=== PATIENT | female | born 1960 | race African-American/Black ===

== ENCOUNTER 2022-11-02 17:50 | Emergency (ER) | payer OTHER, SELFPAY ==
--- NOTE | ~2022-11-02 | XR_ITS ---
EXAMINATION: XR chest 2V DATE: 11/02/2022 18:55 INDICATION: Cough and congestion. TECHNIQUE: Frontal and lateral views of the chest were obtained. COMPARISON: None. FINDINGS: There is a diffuse interstitial pattern, consistent with mild pulmonary edema. No pleural e ffusion or pneumothorax. Cardiomegaly is noted. Median sternotomy wires are noted. IMPRESSION: 1. Mild pulmonary edema. 2. Cardiomegaly. Reviewed, dictated and finalized at location E.
[2022-11-02 18:32] VITALS: BP 154/89; PULSE 80; RESP 16; TEMP 36.6; O2SAT 100
[2022-11-02 19:25] LABS: Influenza A QL RT-PCR Negative (Negative); Influenza B QL RT-PCR Negative (Negative); SARS-CoV-2 RNA PCR Negative (Negative)
--- NOTE | 2022-11-02 20:52 | PC.NURSE ---
Pt ambulatory to intake desk, agitated, states This wait is ridiculous, Im leaving. No waiting anymore. I can go home and sit. Pt ambulated out in NAD. Steady gait.
== END 2022-11-03 00:59 | disposition left against medical advice (07) ==
LOC: ANHED 21:04
PROVIDERS: Emergency Provider Emergency Medicine; PCP Family Medicine
DX: R05.9 Cough, unspecified (principal); Z20.822 Contact with and (suspected) exposure to COVID-19
CPT/HCPCS: 71046; 87636; 99199

== ENCOUNTER 2022-12-12 13:19 | Inpatient (IN) | payer OTHER, SELFPAY ==
[2022-12-12] VITALS (15 sets, daily range): BP systolic 121–147; BP diastolic 80–100; PULSE 67–79; RESP 12–20; TEMP 36.2–37.1; O2SAT 95–100; BMI 33.4
--- NOTE | ~2022-12-12 | US_ITS ---
EXAMINATION: US abdomen limited DATE: 12/13/2022 12:04 INDICATION: Epigastric abdominal pain. TECHNIQUE: Multiple grayscale and Doppler ultrasound images of the abdomen were obtained. COMPARISON: CT 12/13/2022 FINDINGS: The visualized portions of the head of the body of the pancreas are normal. The liver is no rmal without focal lesion. No liver surface nodularity. There is normal flow in main portal vein. The gallbladder is normal in size. No gallstones or gallbladder wall thickening. There is no sonographic Lovelace sign. The common duct is normal and measures 2 mm. IMPRESSION: 1. Normal right upper quadrant ultrasound. Reviewed, dictated and finalized at location A.
--- NOTE | ~2022-12-12 | CT_ITS ---
EXAMINATION: CTA chest PE protocol DATE: 12/13/2022 09:29 INDICATION: Chest pain. TECHNIQUE: Computed tomography angiography (CTA) of the chest was performed with 100 mL Omnipaque-350 intravenous contrast timed to evaluate the pulmonary arteries. Coronal maximum intensity projection 3D-reconstructions were created by the technologist. Automated exposure control and iterative reconst ruction technique were employed. The dose-length product was 676.76 mGy-cm. COMPARISON: Chest 2 views 11/02/2022 FINDINGS: The lungs demonstrate mild atelectasis. No pleural effusion. Cardiomegaly is noted. No jey cardial effusion. The central pulmonary arteries are enlarged, consistent with pulmonary arterial hyp ertension. There is no pulmonary embolus. There is mild aortic atherosclerosis. There is a 10 mm mass of fat in left kidney, consistent with an angiomyolipoma versus focal atrophy. Hyperdensity in the g allbladder may be contrast. Median sternotomy wires are noted. There is mild thoracic spondylosis. IMPRESSION: 1. No pulmonary embolus. Reviewed, dictated and finalized at location A. IMPRESSION: 1. No pulmonary embolus.
--- NOTE | 2022-12-12 13:25 | ED.CHESTPAIN ---
HPI - Chest Pain General Chief Complaint: Chest Pain Stated Complaint: cp Time Seen by Provider: 12/12/22 13:25 Source: patient and EMS Mode of arrival: EMS Limitations: clinical condition History of Present Illness HPI narrative: Patient came to the ED by ambulance with chest pain that started 1-1/2 hours prior to arrival while laying down playing with her grandkids. Patient have no teeth, difficult to understand, unable to answer question appropriately, in pain. EKG on arrival showed ST elevation in aVF and lead III. STEMI called. Dr. Cates came to the emergency room to evaluate the patient Review of Systems Review of Systems: ROS unobtainable: Yes unobtainable due to medical condition Exam Narrative: General appearance: Well-developed, well-nourished, in pain Skin: Normal color Head: Normocephalic, nontraumatic Eyes: Clear conjunctiva ENT: Oropharynx normal, ears normal, nose normal Neck: Supple, nontender Chest and respiratory: Airway patent, no respiratory distress, no accessory muscle use Heart: Regular rate/rhythm Abdomen: Soft, nontender, no organomegaly, quiet bowel sounds Vascular: Normal peripheral pulses, normal capillary refill. MDM - Chest Pain ECG Data EKG #1: Attestation: I personally reviewed and interpreted this ECG as follows: ECG completion date: 12/12/22 ECG completion time: 13:39 Interpretation: EKG is normal sinus rhythm at 65 bpm, ST elevation lead III and aVF, T wave abnormality, abnormal EKG no old EKG available for comparison Critical Care Time Critical Care Time Critical Care Time: Yes Total Critical Care Time: 15 Discharge Plan Discharge Clinical Impression: ST elevation (STEMI) myocardial infarction Condition: Guarded Prognosis Follow-up/Referrals: Davina,Ignacio Crowley MD [Primary Care Provider] -
--- NOTE | 2022-12-12 13:34 | PC.NURSE ---
Dr. Cates to bedside for consult.
--- NOTE | 2022-12-12 13:34 | PC.NURSE ---
REPEAT EKG OBTAINED FOR DR ROBLERO
--- NOTE | 2022-12-12 13:36 | ECG_ITS ---
Measurements Intervals [place] Rate: 76 P: 68 LA: 183 QRS: 84 QRSD: 90 T: 67 QT: 402 QTc: 452 Interpretive Statements SINUS RHYTHM ST DEVIATION AND MARKED T-WAVE ABNORMALITY, CONSIDER ANTERIOR ISCHEMIA [-0.5+ mV T- WAVE IN V3/V4] NO PREVIOUS ECG AVAILABLE FOR COMPARISON Electronically Signed On 12-13-2022 11:29:24 CDT by Jasmin Cates M.D.
--- NOTE | 2022-12-12 13:36 | PC.NURSE ---
4000 units of heparin given IV push
--- NOTE | 2022-12-12 13:39 | PC.NURSE ---
ASSISTANT NEWS DIRECTOR TEAM AT BEDSIDE
--- NOTE | 2022-12-12 13:40 | PC.NURSE ---
PT SHAVED AND PREPPED FOR CARDIAC CATH.
--- NOTE | 2022-12-12 13:40 | PC.NURSE ---
HEPARIN GTT 1000UNIT DRIP INITIATED
--- NOTE | 2022-12-12 13:41 | PC.NURSE ---
BRILINTA 180MG GIVEN
--- NOTE | 2022-12-12 13:43 | PC.NURSE ---
PT TAKEN TO CURING MACHINE OPERATOR BY TEAM
[2022-12-12 13:46] LABS: Basophils Absolute Auto 0.1 K/mm3 (0.0-0.1); Basophils Percent Auto 0.8 % (0.2-1.2); Eosinophils Absolute Auto 0.1 K/mm3 (0-0.3); Eosinophils Percent Auto 1.3 % (0-4.4); Hematocrit 39.4 % (37.0-47.0); Hemoglobin 12.3 g/dL (12.0-15.0); Immature Granulocyte Absolute 0.03 K/mm3 (0.00-0.031); Immature Granulocyte Percent A 0.4 % (0-0.5); Lymphocytes Absolute Auto 2.54 K/mm3 (0.9-3.2); Lymphocytes Percent Auto 32.9 % (18.3-44.2); Mean Corpuscular HGB Conc 31.2 g/dl (32-36); Mean Corpuscular Hemoglobin 27.8 pg (26-34); Mean Corpuscular Volume 89.1 fl (80-100); Mean Platelet Volume 10.9 fl (7.4-10.4); Monocytes Absolute Auto 0.6 K/mm3 (0.1-0.6); Monocytes Percent Auto 7.5 % (2.6-8.5); Neutrophils Absolute Auto 4.4 K/mm3 (1.3-6.7); Neutrophils Percent Auto 57.1 % (45.5-73.1); Platelet Count Result 231 k/mm3 (150-375); Red Blood Count 4.42 M/mm3 (4.2-5.4); Red Cell Distribution Width 15.4 % (11.5-14.5); White Blood Count 7.7 K/mm3 (4.5-10.0)
[2022-12-12 13:58] LABS: Prothrombin Time 13.8 Seconds (11.1-14.7)
[2022-12-12 13:59] LABS: Alanine Aminotransferase 17 U/L (6-35); Albumin Level 4.1 g/dL (3.5-5.1); Alkaline Phosphatase 87 U/L (38-126); Anion Gap 6 mmol/L (8-16); Aspartate Amino Transferase 20 U/L (14-36); Bilirubin,Total 0.3 mg/dL (0.2-1.3); Blood Urea Nitrogen 14 mg/dL (7-17); Calcium 8.7 mg/dL (8.4-10.2); Carbon Dioxide 30 mmol/L (22-30); Chloride 101 mmol/L (98-107); Cholesterol 126 mg/dL (0-200); Estimated CRCL calculation 66 ml/min; Estimated Glomerular Filt Rate > 60; Glucose 148 mg/dL (65-110); HDL Direct 46 mg/dL; Partial Thromboplastin Time 23.3 SECONDS (22.3-36.8); Potassium 4.1 mmol/L (3.4-5.0); Sodium 137 mmol/L (137-145); Triglycerides 76 mg/dL (<150)
[2022-12-12 14:06] LABS: LDL Cholesterol Direct 62 mg/dL
[2022-12-12 14:09] LABS: Troponin I < 0.012 ng/mL (0.000-0.034)
--- NOTE | 2022-12-12 14:27 | PM.CNCAR ---
Assessment and Plan Assessment and plan (1) Chest pain: Code(s): R07.9 - Chest pain, unspecified Status: Acute (2) ST elevation (STEMI) myocardial infarction: Qualifiers: Involved coronary artery: unspecified coronary artery Qualified Code(s): I21.3 - ST elevation (STEMI) myocardial infarction of unspecified site Code(s): I21.3 - ST elevation (STEMI) myocardial infarction of unspecified site Status: Suspected (3) History of open heart surgery: Code(s): Z98.890 - Other specified postprocedural states Status: Acute Plan We are consulted for possible STEMI. This is a 62 year old female who presented with acute chest pain that began about an hour and half prior to presenting to [facility]. Patient states it feels like someone is sitting on her chest. EKG in the ER shows sinus rhythm, incomplete right bundle branch block with T-wave inversions in the anterior leads. Lead III with approximately 1mm concave ST elevation and lead AVF with <1mm concave ST elevation. There is no prior EKG available for comparison. Given her concerning chest pain, decision made to take patient urgently to the laborer/key man. Cardiac catheterization shows no obstructive disease in the major epicardial coronary arteries, there is small branch vessel disease of a small caliber branch coming off of an OM vessel. Angiographically no STEMI. LVEDP is 5. Recommend further workup of her chest pain. Recommend CT PE to rule out PE. Will need to obtain records from [place] regarding her cardiac history. History of Present Illness History of Present Illness Consult date/time: 12/12/22 14:27 Requesting physician: Asif Medina MD Consult reason: chest pain Reason For Visit: STEMI Narrative: We are consulted for possible STEMI. This is a 62 year old female who presented with acute chest pain that began about an hour and half prior to presenting to [facility]. Patient states it feels like someone is sitting on her chest. EKG in the ER shows sinus rhythm, incomplete right bundle branch block with T-wave inversions in the anterior leads. Lead III with approximately 1mm concave ST elevation and lead AVF with <1mm concave ST elevation. There is no prior EKG available for comparison. Patient tells me that she underwent open heart surgery about 30 years ago at [facility]. Patient states that her valve was getting closed and she was coughing up blood from it and they had to go in here and open up the valve. Patient cannot provide me any further details other than that. When I looked in our [facility] system, I do not see any prior documentation or records. There are no other records here at [facility]. Patient states she sees a sports official at [facility], but she cannot remember the name of her Physical Therapy Asst. She does currently smoke 1PPD. No recreational drug use. Review of Systems Review of Systems: All systems reviewed & are unremarkable except as noted in HPI and below (HPI) Meds Vital Signs Vital Signs - 24 hr 12/12/22 13:20 Temperature 36.9 C Pulse Rate 76 Respiratory Rate 20 Blood Pressure 134/94 H Pulse Oximetry 97 Oxygen Delivery Room Air Exam Const: Other: In distress from chest pain HENMT: Mouth: Yes moist mucous membranes Eyes: General: appearance normal, both eyes and all related structures Sclera: sclerae normal Neck: Neck: supple Resp: Effort & Inspection: normal respiratory effort Auscultation: clear to auscultation bilaterally Cardio: Rate: regular rate Rhythm: regular rhythm Heart sounds: no murmurs Skin: General skin exam: normal color Neuro: Speech: normal speech Psych: Mental Status: mental status grossly normal Affect: normal affect Results Labs and Meds 12/12/22 13:39 12/12/22 13:38 Lab results: Cardiac Enzymes 12/12/22 Range/Units 13:38 AST 20 (14-36) U/L Troponin I < 0.012 (0.000-0.034) ng/mL Coagulation 12/12/22 Rang
--- NOTE | 2022-12-12 14:41 | WPDMODSED ---
Moderate Sedation Note-Pt Data Patient Data Diagnosis: ACS Present Complaint: Chest pain Procedure to be performed/Plan: Coronary angiography, left heart cath, +/- PCI Current Medications: Active Medications Sodium Chloride (Normal Saline Iv) 1,000 mls @ 125 mls/hr IV CONT .Q8H ONE Stop: 12/12/22 22:22 Perflutren Lipid Microsphere (Perflutren Lipid Microspheres 1.5 Ml Vial Diluted To 10 Ml Total Volume) 0 ml IV PUSH ONCE PRN; Protocol PRN Reason: adequate visualization Stop: 12/14/22 14:25 Sedation/Anesthesia: No previous sedation/anesthesia problems (including family history). Mod Sed Physical Exam Physical Exam Pre Procedural Exam: Normal: Lungs, Heart Rate, Heart Rhythm, Neuro Exam, Abdomen, Extremities and Skin and Variation: Appearance (In mild distress) Hours since solid foods: 0 Hours since liquid intake: 0 Mallampati Classification: class III Internal Medicine - PN: Obj Da Vital Signs Vital Signs: Vital Signs - 24 hr 12/12/22 13:20 Temperature 36.9 C Pulse Rate 76 Respiratory Rate 20 Blood Pressure 134/94 H Pulse Oximetry 97 Oxygen Delivery Room Air Meds/Results Medications: Active Medications Generic Name Dose Route Start Last Admin Trade Name Freq PRN Reason Stop Dose Admin Sodium Chloride 1,000 mls @ 125 mls/hr 12/12/22 14:23 Normal Saline Iv IV CONT 12/12/22 22:22 .Q8H ONE Perflutren Lipid Microsphere 0 ml 12/12/22 14:25 Perflutren Lipid Microspheres 1.5 Ml Vial Diluted To 10 Ml Total Volume IV PUSH 12/14/22 14:25 ONCE PRN adequate visualization Protocol Labs 12/12/22 13:39 12/12/22 13:38 Labs: Laboratory Results - last 24 hr 12/12/22 12/12/22 13:38 13:39 WBC 7.7 RBC 4.42 Hgb 12.3 Hct 39.4 MCV 89.1 MCH 27.8 MCHC 31.2 L RDW 15.4 H Plt Count 231 MPV 10.9 H Immature Gran % (Auto) 0.4 Neut % (Auto) 57.1 Lymph % (Auto) 32.9 [place] % (Auto) 7.5 Eos % (Auto) 1.3 Baso % (Auto) 0.8 Lymph # (Auto) 2.54 [place] # (Auto) 0.6 Eos # (Auto) 0.1 Baso # (Auto) 0.1 Abs Immat Gran (auto) 0.03 Absolute Neuts (auto) 4.4 Absolute Nucleated RBC 0.0 Nucleated RBC % 0.0 PT 13.8 INR 1.0 APTT 23.3 Sodium 137 Potassium 4.1 Chloride 101 Carbon Dioxide 30 Anion Gap 6 L BUN 14 Creatinine 0.90 Estim Creat Clear Calc 66 Estimated GFR > 60 Glucose 148 H Calcium 8.7 Total Bilirubin 0.3 AST 20 ALT 17 Alkaline Phosphatase 87 Troponin I < 0.012 Total Protein 8.0 Albumin 4.1 Triglycerides 76 Cholesterol 126 LDL Cholesterol Direct 62 HDL Direct 46 ASA Classification/Sedation ASA Classification/Sedation ASA Class: III Emergent: Yes Risks: Risks, benefits and alternatives explained and patient/family accepted plan for sedation. Patient re-evaluated immediately prior to sedation.
--- NOTE | 2022-12-12 14:42 | WPDCARDPROC ---
Cardiac Cath Procedure Note Date of procedure:: 12/12/22 Performing physician:: CATHETERIZATION LABORATORY REPORT Procedure Date: 12/12/2022 Coater Associate: Jasmin Cates M.D., [facility]? Referring Physician: Dr. Medina ([facility]) ? Anesthesia: Versed and Fentanyl were ordered and given in my presence at 14:00, procedure ended at 14:19. Supervision of nurse monitored moderate sedation with Versed and Fentanyl was provided for 19 minutes. Total of Versed 2mg and Fentanyl 75mcg were administered by the Sign Maker RN Nilda Celeste. Pre-op Diagnosis: Possible STEMI Post-op Diagnosis: 1. No obstructive coronary artery disease of the major epicardial coronary arteries. There is small branch vessel disease of an OM branch. 2. Normal left ventricular end-diastolic pressure of 5mmHg. 3. Left ventricular ejection fraction appears preserved on LV angiogram. Procedure(s): 1. Moderate sedation 2. Ultrasound-guided access of the right common femoral artery 3. Coronary angiography 4. Left heart cath 5. Angioseal closure of the right common femoral artery Access Site: Right common femoral artery Brief History and Clinical Indications: Patient is a 62 year old female who is referred for emergent cardiac cath for possible STEMI. All risks, benefits and alternatives to left heart catheterization with or without percutaneous coronary intervention was discussed at length with the patient. Risk of complications including but not limited to bleeding, infection, arrhythmia, stroke, worsening kidney function, blood loss, groin hematoma, limb loss, emergency coronary artery bypass grafting, and even were discussed with the patient and all questions were answered. The patient understood and wished to proceed. Time out called, patient name, date of , medical record number, allergies, procedure performed, identify Coater Associate, patient and staff member concurred with accurate data, procedure carried on. Findings: LEFT HEART CATHETERIZATION FINDINGS: 1. Left main: Large caliber vessel. The left main coronary artery is widely patent without any significant obstructive disease. 2. Left anterior descending: Large caliber vessel that tapers to small caliber distally. There is mild disease in the mid LAD, otherwise rest of the LAD and the diagonal branches have mild luminal irregularities without any significant obstructive angiographic disease. 3. Left circumflex: Large caliber vessel. The LCX has luminal irregularities. The OM vessel is a large caliber vessel that bifurcates into two branches. The first branch is a medium caliber vessel that is tortuous and has luminal irregularities. The second branch is a small caliber vessel with mild diffuse disease. There is a branch off of this branch that is diffusely diseased. 4. Right coronary artery: Large caliber vessel. The RCA has mild luminal irregularities without any significant obstructive angiographic disease. The RCA is the dominant vessel. 5. Left ventricle: A. End-diastolic pressure 5mmHg. B. LV gram: LVEF appears to be preserved. C. No significant gradient across aortic valve on catheter pullback. Description of Procedure: Informed consent signed and placed in the chart. Patient transferred to label maker room. Prepped and draped in usual sterile fashion. 2% lidocaine in right groin area. Micropuncture needle used to access right common femoral artery under ultrasound guidance. J wire advanced, micropuncture cannula placed. Right iliofemoral angiogram performed, access confirmed and micropuncture cannula exchanged for 6-FR sheath. 5F FL 4 diagnostic catheter engaged Left Main Coronary Artery. 6F FR 4 guide catheter engaged Right Coronary Artery. Multiple orthogonal angiogram obtained and reviewed 5F Pigtail diagnostic catheter crossed aortic valve to obtain LVEDP, LV angiogram deferred. Hemostasis was achieved by 6F Angioseal. ? Assessment: 1. No obstructive coronary artery
--- NOTE | 2022-12-12 15:56 | ADMGEN ---
This patient, Patricia Cloud, was admitted to Intensive Care Unit-6. Patient/family oriented to hospital policies and general routines including ID bracelet, bed and alarms, visiting hours, pain management, procedures, bathroom and other care routines, personal items, smoking policy, room service/diet, and visiting hours. Information on how to activate the Rapid Response Team has been discussed. Patient/Family are encouraged to report perceived risks to care and to ask questions if they do not understand what they are told or what they should do.
--- NOTE | 2022-12-12 16:21 | PM.IMHP ---
H&P: HPI History of Present Illness Date/Time: 12/12/22 16:21 Chief Complaint: Chest pain Narrative: This is a 62-year-old female patient who came to the emergency room via ambulance with complaints of chest pain that started an hour and half prior to arriving. The patient was laying down and playing with her grandkids when the chest pain occurred. When I question the patient she was complaining of left upper abdominal pain and lower back pain. ER had a difficult time understanding the patient she was not able to understand questions. When I assessed her in the emergency room she was grunting and holding her chest. EKG on arrival showed a ST elevation in AV F and lead 3 as STEMI was called. The patient was taken to the cardiac catheterization lab. Postop diagnosis. No obstructive coronary artery disease of the major epicardial coronary arteries. There is small branch vessel disease of an OM branch. 2. Normal left ventricular end-diastolic pressure of 5mmHg. 3. Left ventricular ejection fraction appears preserved on LV angiogram. The patient was found not to be a STEMI and there for her care was given over to the hospitalist group. The patient does have an old sternotomy scar and her daughter stated that she had a valve replacement. The daughter stated that the patient had a valve replaced at [facility]. However no records have been able to be found in the [facility] system. The patient is now in the ICU complaining of discomfort. Her daughters are answering the questions for her. Her troponin prior to the cardiac catheterization was negative post cardiac catheterization was 0.041. The patient's only past medical history is hyperlipidemia and hypertension. According to the daughters the patient has not been taking her medication for the last month. Chest x-ray was read as mild pulmonary edema and cardiomegaly. The patient was given fentanyl, Versed, morphine, heparin, Brilinta, GI cocktail, and Protonix. The patient has no prior history of DVTs or PEs. The patient is being admitted to inpatient status on the date of service of 12/12/2022. Review of Systems Review of Systems: All systems reviewed & are unremarkable except as noted in HPI and below Constitutional: Constitutional: Reports as per HPI and Reports no additional constitutional complaints Eyes: Eyes: Reports as per HPI and Reports no additional eye complaints ENT: Reports system reviewed and no additional complaints, except as documented and Reports Normal hearing present Cardiovascular: Cardiovascular: Reports no additional cardiovascular complaints Respiratory: Respiratory: Reports no additional respiratory complaints and Reports no additional respiratory complaints Gastrointestinal: Gastrointestinal: Reports as per HPI and Reports no additional gastrointestinal complaints Musculoskeletal: Musculoskeletal: Reports no additional musculoskeletal complaints Integumentary/Breasts: Skin/Breast: Reports system reviewed and no additional complaints, except as docu and Reports as per HPI Neurologic: Reports system reviewed and no additional complaints, except as documented, Reports as per HPI and Reports Normal hearing present Psychiatric: Psychiatric: Reports no additional psychiatric complaints and Reports as per HPI Endocrine: Endocrine: Reports no additional endocrine complaints Hematologic/Lymphatic: Hematologic/Lymphatic: Reports no additional hematologic/lymphatic complaints Allergic/Immunologic: Allergic/Immunologic: Reports no additional allergic/immunologic complaints PMFSH Past Medical History Medical History (Updated 12/12/22 @ 20:19 by Itzel Hughes NP) HTN (hypertension), malignant Hyperlipidemia Tobacco abuse Surgical History Surgical History (Updated 12/12/22 @ 20:08 by Itzel Hughes NP) Heart valve replaced Family History Family History (Updated 12/12/22 @ 20:10 by Itzel Hughes NP) Mother Hypertension Father Cancer Social Histo
[2022-12-12 17:09] LABS: D Dimer 0.37 ug/mL (<0.48)
[2022-12-12 17:27] LABS: Troponin I 0.041 ng/mL (0.000-0.034)
[2022-12-12] MEDS: BELLADONNA ALK/PHENOB ELIX 10 ML, MAG HYDROX/ALUMINUM HYD/SIMETH 30 ML, LIDOCAINE HCL 2... PO (17:30)
[2022-12-12] MEDS: FAMOTIDINE 20 MG/2 ML VIAL IV PUSH ×2 (17:32→20:46)
[2022-12-12] MEDS: MORPHINE SULFATE (*CRX) 2 MG/ML INJ IV PUSH (17:32)
[2022-12-12] MEDS: PANTOPRAZOLE SODIUM IV 40 MG VIAL IV PUSH (17:33)
[2022-12-12] MEDS: SODIUM CHLORIDE 0.9% IV 1,000 ML 125 ML IV CONT (17:33)
[2022-12-12] MEDS: ASPIRIN 81 MG CHEWABLE TABLET 324 MG PO (22:49)
[2022-12-13] VITALS (12 sets, daily range): BP systolic 118–149; BP diastolic 78–94; PULSE 62–81; RESP 16–29; TEMP 36.6–37.1; O2SAT 97–100
--- NOTE | 2022-12-13 | ECHO_ITS ---
Patient Info Name: Patricia Cloud Age: 62 years : 1960 Gender: Female Ht: 65 in Wt: 217 lbs BSA: 2.17 m2 HR: 70 bpm BP: 149 / 94 mmHg Heart Rhythm: Sinus Rhythm Technical Quality: Fair Exam Date: 12/13/2022 1:09 PM Exam Location: [facility] Patient Status: Inpatient Admit Date: 12/12/2022 Staff Ordering Physician: Jasmin Cates MD (silvia/alvarado) Circle Shear Operator: Joann Cole RDCS Attending Provider: Xena Stokes MD Referring Physician: Darryn SIEGEL; Exam Type: CA echo doppler color flow Study Info Indications R07.9 - Chest pain, unspecified Complete two-dimensional, color flow and Doppler transthoracic echocardiogram is performed. Summary 1. Complete two-dimensional, color flow and Doppler transthoracic echocardiogram is performed. 2. Normal left ventricular size and function with good contractility of all segments. Ejection fraction 65-70%. Grade 2 diastolic dysfunction is present. 3. Left atrial chamber dimension is mildly enlarged. 4. The mitral valve annulus is moderately calcified and the valve is moderately thickened, with restricted movement of the posterior leaflet and buckling of the anterior leaflet. There is mild mitral stenosis present with a mitral valve area of 1.7-2.0 cm2, and mean gradient of 7 mmHg. Consider rheumatic mitral valve disease. 5. No pulmonary hypertension, estimated pulmonary arterial systolic pressure is 34 mmHg. 6. Normal sinus rhythm. Left Ventricle Left ventricular chamber dimension is normal. Left ventricular systolic function is normal, estimated at 65-70%. There is no increased left ventricular wall thickness. Left ventricular septal wall motion is normal. The left ventricular diastolic function is grade II diastolic dysfunction. Right Ventricle Right ventricular chamber dimension is normal. Right ventricular systolic function is normal. Left Atria Left atrial chamber dimension is mildly enlarged. Right Atria Right atrial chamber dimension is normal. Aortic Valve The aortic valve is trileaflet. There is mild aortic valve sclerosis. There is no aortic valve stenosis. There is no aortic valve regurgitation. Pulmonic Valve The pulmonic valve is normal. There is no pulmonic valve stenosis. There is trace pulmonic regurgitation. Mitral Valve The mitral valve has thickened leaflets and restricted posterior leaflet motion. There is mild mitral valve stenosis. There is trace mitral valve regurgitation. There is mild mitral valve calcification. The mitral valve annulus is moderately calcified and the valve is moderately thickened, with restricted movement of the posterior leaflet and buckling of the anterior leaflet. There is mild mitral stenosis present with a mitral valve area of 1.7-2.0 cm2, and mean gradient of 7 mmHg. Consider rheumatic mitral valve disease. Tricuspid Valve The tricuspid valve leaflets are normal. There is no significant tricuspid valve stenosis. There is trace tricuspid valve regurgitation. No pulmonary hypertension, estimated pulmonary arterial systolic pressure is 34 mmHg. Pericardium/Pleural The pericardium appears normal. There is no pericardial effusion. Inferior Vena Cava Normal inferior vena cava with >50% collapse upon inspiration consistent with Empty right atrial pressure, 10 mmHg. Aorta The aortic root size at the sinus of Valsalva is normal. The prox ascending aorta size is normal. Left Ventricular Outflow Tract Name Value Nor
[2022-12-13] MEDS: HYDROcodone/acetaminophen (*CRX) 5-325 MG TABLET 1 TAB PO ×2 (04:38→20:20)
[2022-12-13 04:42] LABS: Basophils Absolute Auto 0.1 K/mm3 (0.0-0.1); Basophils Percent Auto 0.8 % (0.2-1.2); Eosinophils Absolute Auto 0.1 K/mm3 (0-0.3); Eosinophils Percent Auto 1.1 % (0-4.4); Hematocrit 40.4 % (37.0-47.0); Hemoglobin 12.4 g/dL (12.0-15.0); Immature Granulocyte Absolute 0.01 K/mm3 (0.00-0.031); Immature Granulocyte Percent A 0.1 % (0-0.5); Lymphocytes Absolute Auto 1.83 K/mm3 (0.9-3.2); Lymphocytes Percent Auto 24.9 % (18.3-44.2); Mean Corpuscular HGB Conc 30.7 g/dl (32-36); Mean Corpuscular Hemoglobin 27.9 pg (26-34); Mean Platelet Volume 10.9 fl (7.4-10.4); Monocytes Absolute Auto 0.6 K/mm3 (0.1-0.6); Neutrophils Absolute Auto 4.8 K/mm3 (1.3-6.7); Neutrophils Percent Auto 65.1 % (45.5-73.1); Platelet Count Result 206 k/mm3 (150-375); Red Blood Count 4.44 M/mm3 (4.2-5.4); Red Cell Distribution Width 15.4 % (11.5-14.5); White Blood Count 7.4 K/mm3 (4.5-10.0)
[2022-12-13 05:01] LABS: Alanine Aminotransferase 31 U/L (6-35); Albumin Level 3.6 g/dL (3.5-5.1); Alkaline Phosphatase 71 U/L (38-126); Anion Gap 5 mmol/L (8-16); Aspartate Amino Transferase 124 U/L (14-36); Bilirubin,Total 0.5 mg/dL (0.2-1.3); Blood Urea Nitrogen 12 mg/dL (7-17); Calcium 8.3 mg/dL (8.4-10.2); Carbon Dioxide 25 mmol/L (22-30); Chloride 107 mmol/L (98-107); Estimated CRCL calculation 92 ml/min; Estimated Glomerular Filt Rate > 60; Glucose 103 mg/dL (65-110); Lipase 32 U/L (23-300); Magnesium 2.3 mg/dL (1.6-2.3); Potassium 4.2 mmol/L (3.4-5.0); Sodium 137 mmol/L (137-145)
[2022-12-13 05:06] LABS: Lactic Acid Reflex 0.7 mmol/L (0.7-2.0)
[2022-12-13 05:51] LABS: Thyroid Stimulating Hormone Reflex 0.367 uIU/mL (0.465-4.68)
--- NOTE | 2022-12-13 07:00 | ECG_ITS ---
Measurements Intervals [place] Rate: 75 P: 58 WY: 168 QRS: 102 QRSD: 86 T: -35 QT: 385 QTc: 432 Interpretive Statements SINUS RHYTHM WITH OCCASIONAL SUPRAVENTRICULAR PREMATURE COMPLEXES INDETERMINATE AXIS POSSIBLE RIGHT VENTRICULAR CONDUCTION DELAY [RSR (QR) IN V1/V2] NONSPECIFIC T-WAVE ABNORMALITY COMPARED TO ECG 12/12/2022 13:34:57 NO SIGNIFICANT CHANGES Electronically Signed On 12-13-2022 14:10:13 CDT by Arpita Howard M.D.
[2022-12-13 07:08] LABS: Free T4 Free Thyroxine Reflex 1.02 ng/dL (0.78-2.19)
[2022-12-13 08:04] LABS: Total Triiodothyronine (T3) 0.92 NG/ML (0.97-1.69)
--- NOTE | 2022-12-13 08:43 | PM.PNCARD ---
Progress Note: A&P Assessment and Plan (1) NSTEMI (non-ST elevated myocardial infarction): Code(s): I21.4 - Non-ST elevation (NSTEMI) myocardial infarction Status: Acute Assessment and Plan: Cardiac catheterization 12/12 showed: No obstructive coronary artery disease of the major epicardial coronary arteries. There is small branch vessel disease of an OM branch. Normal left ventricular end-diastolic pressure of 5mmHg. Troponin levels: <0.012, 0.041, 7.280. NSTEMI possibly from the small branch vessel disease, however, it seems out of proportion to the degree of chest pain she was having and the degree of troponin elevation. Possibly from MINOCA (myocardial infarction with no obstructive coronary arteries), coronary spasm, etc. Echocardiogram is pending. Loaded with ASA and Brilinta 12/12. Recommend ASA 81mg once daily indefinitely, Brilinta 90mg BID, high intensity statin. Will also obtain CTA to rule out pulmonary embolism. (2) History of open heart surgery: Code(s): Z98.890 - Other specified postprocedural states Status: Acute Assessment and Plan: Patient tells me that she underwent open heart surgery about 30 years ago at [facility]. Patient states that her valve was getting closed and she was coughing up blood from it and they had to go in here and open up the valve. Patient cannot provide me any further details other than that. When I looked in our [employer] system, I do not see any prior documentation or records. There are no other records here at [facility]. Will try to request records from [facility] to see if we can get any information. (3) Tobacco abuse: Code(s): Z72.0 - Tobacco use Status: Acute Assessment and Plan: Encourage smoking cessation (4) Hyperlipidemia: Code(s): E78.5 - Hyperlipidemia, unspecified Status: Acute Assessment and Plan: LDL 62. Continue high-intensity statin. (5) Hypertension: Code(s): I10 - Essential (primary) hypertension Status: Acute Assessment and Plan: Stable. Subjective Date/time seen: 12/13/22 08:43 Interval history: Reason for visit: NSTEMI HPI: We are consulted for possible STEMI. This is a 62 year old female who presented with acute chest pain that began about an hour and half prior to presenting to [facility]. Patient states it feels like someone is sitting on her chest. EKG in the ER shows sinus rhythm, incomplete right bundle branch block with T-wave inversions in the anterior leads. Lead III with approximately 1mm concave ST elevation and lead AVF with <1mm concave ST elevation. There is no prior EKG available for comparison. Patient tells me that she underwent open heart surgery about 30 years ago at [facility]. Patient states that her valve was getting closed and she was coughing up blood from it and they had to go in here and open up the valve. Patient cannot provide me any further details other than that. When I looked in our [employer] system, I do not see any prior documentation or records. There are no other records here at [facility]. Patient states she sees a cloth folder hand at [facility], but she cannot remember the name of her Vacation Planner. She does currently smoke 1PPD. No recreational drug use. Date of service 12/13/2022: Cardiac catheterization showed no obstructive disease in the major epicardial coronary arteries, there is small branch vessel disease of a small caliber branch coming off of an OM vessel. Angiographically no STEMI. LVEDP is 5mmHg. Patient reports that she is feeling much better this morning. Has very light occasional chest pain, but currently without chest pain. Has lower abdominal pain for which an ultrasound is pending. Review of Systems Review of Systems: All systems reviewed & are unremarkable except as noted in HPI and below (HPI) Exam Const: General: comfortable and no acute distress HENMT: Mouth: Yes moist mucous membranes Eyes: General: appearance normal, both eyes and all
[2022-12-13] MEDS: ASPIRIN 81 MG CHEWABLE TABLET PO (09:49)
[2022-12-13] MEDS: ATORVASTATIN 40 MG TABLET PO (09:49)
[2022-12-13] MEDS: FAMOTIDINE 20 MG/2 ML VIAL IV PUSH ×2 (09:49→20:20)
[2022-12-13] MEDS: TICAGRELOR 90 MG TABLET PO ×2 (09:50→20:21)
[2022-12-13] MEDS: ENOXAPARIN 40 MG/0.4 ML SYRINGE SUB-Q (09:50)
--- NOTE | 2022-12-13 14:45 | PM.IMPN ---
Progress Note: A&P Assessment and Plan (1) Hypertension: Code(s): I10 - Essential (primary) hypertension Status: Acute (2) NSTEMI (non-ST elevated myocardial infarction): Code(s): I21.4 - Non-ST elevation (NSTEMI) myocardial infarction Status: Acute (3) Tobacco abuse: Code(s): Z72.0 - Tobacco use Status: Acute Assessment and Plan: Smoking cessation (4) Hyperlipidemia: Code(s): E78.5 - Hyperlipidemia, unspecified Status: Acute Assessment and Plan: Resume atorvastatin. (5) History of open heart surgery: Code(s): Z98.890 - Other specified postprocedural states Status: Acute (6) Chest pain: Code(s): R07.9 - Chest pain, unspecified Status: Acute Assessment and Plan: Chest x-ray mild pulmonary edema cardiomegaly. Cardiac catheterization procedure was performed today. No obstructive coronary artery disease of the major epicardial coronary arteries. There is small branch vessel disease of an OM branch. 2. Normal left ventricular end-diastolic pressure of 5mmHg. 3. Left ventricular ejection fraction appears preserved on LV angiogram. The patient was determined not to have a STEMI. Cardiology looked in [facility] and did not see any prior documentation her records. The patient could not remember the name of the filters assembler that she follows with. I spoke with Radiology and stated that she would not be able to get a CTA pulmonary today because she has already had dye with cardiac catheterization. Continue asa, lipitor and ticagrelor (7) HTN (hypertension), malignant: Code(s): I10 - Essential (primary) hypertension Status: Deleted Assessment and Plan: The patient needs to resume her home medications of losartan and hydrochlorothiazide. Subjective Date/time seen: 12/13/22 14:45 Interval history: 62-year-old female patient who came to the emergency room via ambulance with complaints of chest pain that started an hour and half prior to arriving.? The patient was laying down and playing with her grandkids when the chest pain occurred.? When I question the patient she was complaining of left upper abdominal pain and lower back pain.? ER had a difficult time understanding the patient she was not able to understand questions.? When I assessed her in the emergency room she was grunting and holding her chest.? EKG on arrival showed a ST elevation in AV F and lead 3 as STEMI was called.? The patient was taken to the cardiac catheterization lab.? Postop diagnosis. No obstructive coronary artery disease of the major epicardial coronary arteries. There is small branch vessel disease of an OM branch. 2. Normal left ventricular end-diastolic pressure of 5mmHg. 3. Left ventricular ejection fraction appears preserved on LV angiogram. Pt denies chest pain or SOB today pt to have echo and us abdomen today Review of Systems Review of Systems: Mild sob today otherwise doing well Objective Data Vital Signs Vital Signs: Vital Signs - 24 hr 12/12/22 15:00 12/12/22 15:15 12/12/22 15:30 Temperature Pulse Rate 77 78 67 Respiratory Rate 13 12 14 Blood Pressure 137/83 126/91 H 140/87 Pulse Oximetry 96 96 98 Oxygen Delivery Room Air Room Air Room Air 12/12/22 16:00 12/12/22 16:00 12/12/22 18:00 Temperature Pulse Rate 76 79 Respiratory Rate Blood Pressure Pulse Oximetry 99 Oxygen Delivery Room Air 12/12/22 16:00 12/12/22 16:30 12/12/22 17:30 Temperature 37.1 C 37.1 C 36.9 C Pulse Rate 77 74 68 Respiratory Rate 14 17 15 Blood Pressure 147/99 H 140/100 H 145/89 H Pulse Oximetry 100 100 100 Oxygen Delivery 12/12/22 20:00 12/12/22 19:30 12/12/22 20:00 Temperature 36.8 C Pulse Rate 78 77 Respiratory Rate 19 18 Blood Pressure 124/80 124/81 Pulse Oximetry 100 100 100 Oxygen Delivery Room Air 12/12/22 20:00 12/12/22 20:41 12/12/22 22:00 Temperature 36.8 C Pulse Rate 77 78 77 Respirato
[2022-12-14] VITALS: PULSE 52; O2SAT 97
[2022-12-14 00:45] VITALS: BP 115/63; PULSE 68; RESP 17; TEMP 36.8; O2SAT 97
[2022-12-14 02:00] VITALS: PULSE 64
[2022-12-14 04:00] VITALS: BP 121/90; PULSE 65; PULSE 67; RESP 19; TEMP 36.9; O2SAT 97; O2SAT 98
[2022-12-14 06:00] VITALS: PULSE 60
[2022-12-14 08:00] VITALS: BP 113/64; PULSE 66; RESP 115; TEMP 36.5; O2SAT 90
--- NOTE | 2022-12-14 08:36 | PM.IMPN ---
Progress Note: A&P Assessment and Plan (1) Hypertension: Code(s): I10 - Essential (primary) hypertension Status: Acute Assessment and Plan: Blood pressures reviewed 12/14 (2) NSTEMI (non-ST elevated myocardial infarction): Code(s): I21.4 - Non-ST elevation (NSTEMI) myocardial infarction Status: Acute Assessment and Plan: Cont aspirin, lipitor, brilinta (3) Tobacco abuse: Code(s): Z72.0 - Tobacco use Status: Acute Assessment and Plan: Smoking cessation (4) Hyperlipidemia: Code(s): E78.5 - Hyperlipidemia, unspecified Status: Acute Assessment and Plan: Resume atorvastatin (5) History of open heart surgery: Code(s): Z98.890 - Other specified postprocedural states Status: Acute (6) Chest pain: Code(s): R07.9 - Chest pain, unspecified Status: Acute Assessment and Plan: Chest x-ray mild pulmonary edema cardiomegaly. Cardiac catheterization procedure was performed 12/13 No obstructive coronary artery disease of the major epicardial coronary arteries. There is small branch vessel disease of an OM branch. Cardio determined no STEMI. Continue asa, lipitor and ticagrelor Consider CTA r/o PE when contrast out of system (7) HTN (hypertension), malignant: Code(s): I10 - Essential (primary) hypertension Status: Deleted Assessment and Plan: The patient needs to resume her home medications of losartan and hydrochlorothiazide. Plan DVT prophylaxis with lovenox GI prophylaxis with pepcid Code status full code Subjective Date/time seen: 12/14/22 08:36 Interval history: 62-year-old female patient who came to the emergency room via ambulance with complaints of chest pain that started an hour and half prior to arriving.? The patient was laying down and playing with her grandkids when the chest pain occurred.? When I question the patient she was complaining of left upper abdominal pain and lower back pain.? ER had a difficult time understanding the patient she was not able to understand questions.? When I assessed her in the emergency room she was grunting and holding her chest.? EKG on arrival showed a ST elevation in AV F and lead 3 as STEMI was called.? The patient was taken to the cardiac catheterization lab.? Postop diagnosis. No obstructive coronary artery disease of the major epicardial coronary arteries. There is small branch vessel disease of an OM branch. 2. Normal left ventricular end-diastolic pressure of 5mmHg. 3. Left ventricular ejection fraction appears preserved on LV angiogram. Pt denies chest pain or SOB today pt to have echo and us abdomen today Review of Systems Review of Systems: 12 point review of systems was assessed and was negative except as noted in the HPI Exam Narrative: General: No acute distress, alert and oriented per baseline HEENT: Atraumatic, normocephalic, mucous membranes moist CV: Regular rate and rhythm, S1, S2 Lungs: Clear to auscultation bilaterally, no rales or crackles noted, no wheezes, good air entry Abdomen: Soft, nontender, nondistended Extremities: Normal to inspection Skin: No rashes noted, no lesions or wounds seen Psych: Euthymic, normal affect Objective Data Vital Signs Vital Signs: Vital Signs - 24 hr 12/13/22 10:00 12/13/22 12:00 12/13/22 12:00 Temperature 98.4 F Pulse Rate 68 68 81 Respiratory Rate 29 H Blood Pressure 146/80 H Pulse Oximetry 100 Oxygen Delivery 12/13/22 12:00 12/13/22 14:00 12/13/22 16:00 Temperature Pulse Rate 81 68 75 Respiratory Rate 29 H Blood Pressure Pulse Oximetry 100 Oxygen Delivery Room Air 12/13/22 16:00 12/13/22 16:00 12/13/22 18:00 Temperature 98.7 F Pulse Rate 75 75 70 Respiratory Rate 16 16 Blood Pressure 123/78 Pulse Oximetry 100 100 Oxygen Delivery Room Air 12/13/22 20:00 12/13/22 20:00 12/13/22 22:00 Temperat
[2022-12-14] MEDS: ATORVASTATIN 40 MG TABLET PO (08:44)
[2022-12-14] MEDS: hydroCHLOROthiazide 12.5 MG CAPSULE PO (08:44)
[2022-12-14] MEDS: ASPIRIN 81 MG CHEWABLE TABLET PO (08:44)
[2022-12-14] MEDS: FAMOTIDINE 20 MG/2 ML VIAL IV PUSH (08:45)
[2022-12-14] MEDS: TICAGRELOR 90 MG TABLET PO (08:45)
[2022-12-14] MEDS: LOSARTAN POTASSIUM 50 MG TABLET PO (08:45)
[2022-12-14] MEDS: ENOXAPARIN 40 MG/0.4 ML SYRINGE SUB-Q (08:45)
--- NOTE | 2022-12-14 09:38 | PM.DS ---
DS: Admitting Diagnosis Discharge Date 12/14/22 Admitting Diagnosis chest pain DS: Discharge Diagnosis Discharge Diagnosis (1) Hypertension: Code(s): I10 - Essential (primary) hypertension Status: Acute Assessment and Plan: Blood pressures reviewed 12/14 (2) NSTEMI (non-ST elevated myocardial infarction): Code(s): I21.4 - Non-ST elevation (NSTEMI) myocardial infarction Status: Acute Assessment and Plan: Cont aspirin, lipitor, brilinta (3) Tobacco abuse: Code(s): Z72.0 - Tobacco use Status: Acute Assessment and Plan: Smoking cessation (4) Hyperlipidemia: Code(s): E78.5 - Hyperlipidemia, unspecified Status: Acute Assessment and Plan: Resume atorvastatin (5) History of open heart surgery: Code(s): Z98.890 - Other specified postprocedural states Status: Acute (6) Chest pain: Code(s): R07.9 - Chest pain, unspecified Status: Acute Assessment and Plan: Chest x-ray mild pulmonary edema cardiomegaly. Cardiac catheterization procedure was performed 12/13 No obstructive coronary artery disease of the major epicardial coronary arteries. There is small branch vessel disease of an OM branch. Cardio determined no STEMI. Continue asa, lipitor and ticagrelor Consider CTA r/o PE when contrast out of system (7) HTN (hypertension), malignant: Code(s): I10 - Essential (primary) hypertension Status: Deleted Assessment and Plan: The patient needs to resume her home medications of losartan and hydrochlorothiazide. Plan DVT prophylaxis with lovenox GI prophylaxis with pepcid Code status full code DS: Summary Hospital Course Hospital Course: 62-year-old female patient who came to the emergency room via ambulance with complaints of chest pain that started an hour and half prior to arriving. Cardiology was consulted and recommended cardiac catheterization. Cardiac catheterization shows no obstructive disease in the major epicardial coronary arteries, there is small branch vessel disease of a small caliber branch coming off of an OM vessel. Angiographically no STEMI. LVEDP is 5. NSTEMI possibly from the small branch vessel disease, however, it seems out of proportion to the degree of chest pain she was having and the degree of troponin elevation. Possibly from MINOCA (myocardial infarction with no obstructive coronary arteries), coronary spasm, etc. Echocardiogram is pending. Loaded with ASA and Brilinta 12/12. Recommend ASA 81mg once daily indefinitely, Brilinta 90mg BID, high intensity statin. Please see above and med rec for details. Patient was discharged in stable condition with all symptoms resolved and close outpatient follow-up by Cardiology in family practice. Time Spent with Patient Time attestation: Total time spent providing and/or coordinating discharge services: Exam Narrative: General: No acute distress, alert and oriented per baseline HEENT: Atraumatic, normocephalic, mucous membranes moist CV: Regular rate and rhythm, S1, S2 Lungs: Clear to auscultation bilaterally, no rales or crackles noted, no wheezes, good air entry Abdomen: Soft, nontender, nondistended Extremities: Normal to inspection Skin: No rashes noted, no lesions or wounds seen Psych: Euthymic, normal affect Discharge Plan Discharge Attending physician on discharge: Gertrude Busby Consulting providers: Jasmin Cates Discharging Clinician: Gertrude Busby Patient Disposition: Home, Self-Care Activity: as tolerated Diet: as tolerated Patient Instructions: Antibiotic Form, How to Stop Smoking (GEN) Stand Alone Forms: General Discharge Information Follow-up/Referrals: Yobany*,Ignacio Crowley MD [Primary Care Provider] - Jasmin Cates MD [Physician] - Discharge Medications: New aspirin [Children's Aspirin] 81 mg Tablet,Chewable 81 mg PO DAILY@0800 30 Days Q
--- NOTE | 2022-12-14 10:14 | PM.PNCARD ---
Progress Note: A&P Assessment and Plan (1) NSTEMI (non-ST elevated myocardial infarction): Code(s): I21.4 - Non-ST elevation (NSTEMI) myocardial infarction Status: Acute Assessment and Plan: Cardiac catheterization 12/12 showed: No obstructive coronary artery disease of the major epicardial coronary arteries. There is small branch vessel disease of an OM branch. Normal left ventricular end-diastolic pressure of 5mmHg. Troponin levels: <0.012, 0.041, 7.280. NSTEMI possibly from the small branch vessel disease, however, it seems out of proportion to the degree of chest pain she was having and the degree of troponin elevation. Possibly from MINOCA (myocardial infarction with no obstructive coronary arteries), coronary spasm, etc. Loaded with ASA and Brilinta 12/12. Recommend ASA 81mg once daily indefinitely, Brilinta 90mg BID, high intensity statin. CTA negative for PE. Echocardiogram 12/13 shows normal LV size and function with good contractility of all segments. LVEF is 65-70%. (2) History of open heart surgery: Code(s): Z98.890 - Other specified postprocedural states Status: Acute Assessment and Plan: Patient tells me that she underwent open heart surgery about 30 years ago at [facility]. Patient states that her valve was getting closed and she was coughing up blood from it and they had to go in here and open up the valve. Patient cannot provide me any further details other than that. When I looked in our [employer] system, I do not see any prior documentation or records. There are no other records here at [facility]. Will try to request records from [facility] to see if we can get any information. Echocardiogram 12/14 shows mild mitral stenosis. Recommend outpatient follow up with her primary Litigation Legal Assistant. (3) Tobacco abuse: Code(s): Z72.0 - Tobacco use Status: Acute Assessment and Plan: Encourage smoking cessation (4) Hyperlipidemia: Code(s): E78.5 - Hyperlipidemia, unspecified Status: Acute Assessment and Plan: LDL 62. Continue high-intensity statin. (5) Hypertension: Code(s): I10 - Essential (primary) hypertension Status: Acute Assessment and Plan: Stable. Plan Okay for discharge home today. Patient to follow up with her primary Litigation Legal Assistant. Recommendations/plan discussed with Hospitalist. Subjective Date/time seen: 12/14/22 10:14 Interval history: Reason for visit: NSTEMI HPI: We are consulted for possible STEMI. This is a 62 year old female who presented with acute chest pain that began about an hour and half prior to presenting to [facility]. Patient states it feels like someone is sitting on her chest. EKG in the ER shows sinus rhythm, incomplete right bundle branch block with T-wave inversions in the anterior leads. Lead III with approximately 1mm concave ST elevation and lead AVF with <1mm concave ST elevation. There is no prior EKG available for comparison. Patient tells me that she underwent open heart surgery about 30 years ago at [facility]. Patient states that her valve was getting closed and she was coughing up blood from it and they had to go in here and open up the valve. Patient cannot provide me any further details other than that. When I looked in our [employer] system, I do not see any prior documentation or records. There are no other records here at [facility]. Patient states she sees a child care teacher at [facility], but she cannot remember the name of her Litigation Legal Assistant. She does currently smoke 1PPD. No recreational drug use. Date of service 12/13/2022: Cardiac catheterization showed no obstructive disease in the major epicardial coronary arteries, there is small branch vessel disease of a small caliber branch coming off of an OM vessel. Angiographically no STEMI. LVEDP is 5mmHg. Patient reports that she is feeling much better this morning. Has very light occasional chest pain, but currently without chest pain. Has lower abdominal pain for which a
== END 2022-12-14 09:39 | disposition home or self-care (01) | DRG 190 ==
LOC: ANHED 13:42 → ANHICU 13:43
PROVIDERS: Nurse Practitioner; Admitting Provider Internal Medicine; Emergency Provider Emergency Medicine; PCP Family Medicine; Visit Provider Student in an Organized Health Care Education/Training Program
PROC: 4A023N7 Measurement of Cardiac Sampling and Pressure, Left Heart, Percutaneous Approach (ICD-10-PCS; CPT 93452; principal; 2022-12-12 13:30)
PROC: 4A023N7 Measurement of Cardiac Sampling and Pressure, Left Heart, Percutaneous Approach (ICD-10-PCS; 2022-12-12 13:30)
DX: I21.4 Non-ST elevation (NSTEMI) myocardial infarction (principal); Z95.2 Presence of prosthetic heart valve; E78.5 Hyperlipidemia, unspecified; I25.10 Atherosclerotic heart disease of native coronary artery without angina pectoris; I10 Essential (primary) hypertension; F17.210 Nicotine dependence, cigarettes, uncomplicated
CPT/HCPCS: 36415; 71275; 76705; 80053; 80061; 83605; 83690; 83735; 84439; 84443; 84480; 84484; 85025; 85380; 85610; 85730; 86850; 86900; 86901; 93005; 93306; 93458; 99285; A9270; C1760; C1887; C1894; C9113; G0269; J1644; J1650; J2250; J2270; J3010; J7030; Q9967